=== PATIENT | female | born 1955 | race Caucasian/White ===

== ENCOUNTER 2023-08-08 18:01 | Emergency (ER) | payer MEDICARE, OTHER ==
[~2023-08-08] VITALS: Ht 160 cm; Wt 86.2 kg
[2023-08-08] MEDS ORDERED: IBUP-2314 GT (18:38)
[2023-08-08] MEDS ORDERED: OXYC5TAB3 GT (18:38)
[2023-08-08] MEDS ORDERED: POTASSIUM CHL GT (18:38)
[2023-08-08] MEDS ORDERED: TRIA60LO7 TP (18:38)
[2023-08-08] MEDS ORDERED: HYDR25TA4 GT (18:38)
[2023-08-08] MEDS ORDERED: LEVO150T8 GT (18:38)
[2023-08-08] MEDS ORDERED: FERR220S6 GT (18:38)
[2023-08-08] MEDS ORDERED: GABA-532 GT ×2 (18:38)
[2023-08-08] MEDS ORDERED: ESOM40CA GT (18:38)
[2023-08-08] MEDS ORDERED: HYDR10SY12 GT (18:38)
[2023-08-08] MEDS ORDERED: POLY30DR OP (18:38)
[2023-08-08] MEDS ORDERED: NALO25TA4 GT (18:38)
[2023-08-08] MEDS ORDERED: MECL-159 GT (18:38)
[2023-08-08] MEDS ORDERED: COLL30OI TP (18:38)
[2023-08-08] MEDS ORDERED: RIVA15TA2 PO (18:38)
[2023-08-08] MEDS ORDERED: ESCI10TA GT (18:38)
[2023-08-08] MEDS ORDERED: CEFEPIME HCL 2 G in IV DEXTROSE 5% 100 ML IV ONE (19:45)
[2023-08-08] MEDS ORDERED: IPRATROPIUM BROMIDE 0.5 MG/2.5 ML NEBU NEB ONE (19:45)
[2023-08-08] MEDS ORDERED: ALBUTEROL SULFATE 2.5 MG/3 ML NEBU IH ONE (19:45)
[2023-08-08 20:08] LABS: BASOPHILS % (AUTO) 0.8 % (0.0-2.0); EOSINOPHILS # (AUTO) 0.1 K/uL (0.0-0.7); EOSINOPHILS % (AUTO) 1.7 % (0.0-7.0); HEMATOCRIT 35.4 % (31.2-41.9); HEMOGLOBIN 11.7 g/dL (10.9-14.3); LYMPHOCYTES # (AUTO) 0.8 K/uL (0.8-4.8); LYMPHOCYTES % (AUTO) 15.9 % (20.5-51.5); MEAN CORPUSCULAR HEMOGLOBIN 31.6 uug (24.7-32.8); MEAN CORPUSCULAR HGB CONC 33 g/dL (32.3-35.6); MEAN CORPUSCULAR VOLUME 95.4 fL (75.5-95.3); MONOCYTES # (AUTO) 0.3 K/uL (0.1-1.30); MONOCYTES % (AUTO) 6.7 % (0.0-11.0); NEUTROPHILS # (AUTO) 3.8 K/uL (1.8-8.9); NEUTROPHILS % (AUTO) 74.9 % (38.5-71.5); PLATELET COUNT (AUTO) 139 K/uL (179-408); RED BLOOD CELL COUNT(AUTO) 3.71 MIL/uL (3.63-4.92); RED CELL DISTRIBUTION WIDTH 14.1 % (12.3-17.7); WHITE BLOOD COUNT (AUTO) 5.1 K/uL (3.8-11.8)
[2023-08-08 20:16] LABS: DIFFERENTIAL COMMENT 1
[2023-08-08 20:24] LABS: CARBON DIOXIDE 32 mmol/L (21-32); CHLORIDE 102 mmol/L (98-107); CREATININE 0.9 mg/dL (0.6-1.3); GLUCOSE 126 mg/dL (74-106); POTASSIUM 3.7 mmol/L (3.5-5.1); SODIUM SERUM 144 mmol/L (136-145); UREA NITROGEN, BLOOD 13 mg/dL (7-18)
[2023-08-08] MEDS ORDERED: IPRATROPIUM BROMIDE 0.5 MG/2.5 ML NEBU ONE (20:28)
[2023-08-08] MEDS ORDERED: ALBUTEROL SULFATE 2.5 MG/3 ML NEBU ONE (20:28)
[2023-08-08 20:36] VITALS: O2SAT 99
[2023-08-08 20:37] LABS: ALANINE AMINOTRANSFERASE 31 U/L (14-59); ALBUMIN 3.7 g/dL (3.4-5.0); ALKALINE PHOSPHATASE 105 U/L (50-136); ASPARTATE AMINOTRANSFERASE 20 U/L (15-37); BILIRUBIN,DIRECT 0.1 mg/dL (0.0-0.2); BILIRUBIN,TOTAL 0.4 mg/dL (0.2-1.0); NT-PRO BNP 286 pg/mL (0-125)
[2023-08-08] MEDS ORDERED: CEFEPIME HCL 1 G VIAL ONE (20:48)
[2023-08-08 20:51] VITALS: O2SAT 99
[2023-08-08] MEDS ORDERED: IOHEXOL 350 100 ML INFUS..BTL ONE (21:20)
[2023-08-08] MEDS ORDERED: IV NORMAL SALINE 250 ML IV ONE (21:20)
[2023-08-08] MEDS ORDERED: IV NORMAL SALINE 500 ML IV ONE (22:15)
[2023-08-09 00:05] VITALS: BP 122/76; TEMP 98.6; O2SAT 100
== END 2023-08-09 00:05 | disposition home or self-care (01) ==
LOC: ER 18:03
DX: J96.10 Chronic respiratory failure, unspecified whether with hypoxia or hypercapnia (principal); R03.0 Elevated blood-pressure reading, without diagnosis of hypertension; E78.5 Hyperlipidemia, unspecified; E03.9 Hypothyroidism, unspecified; Z79.1 Long term (current) use of non-steroidal anti-inflammatories (NSAID); Z79.899 Other long term (current) drug therapy
CPT/HCPCS: 36415; 71045; 71275; 83605; 84484; 85025; 87040; 93005; 94760; A4606; J0692; J3590; Q9967